=== PATIENT | female | born 1950 | race Caucasian/White ===

== ENCOUNTER 2018-11-11 07:15 | Observation (INO) | payer OTHER, BC ==
--- NOTE | 2018-10-23 11:38 | GHP ---
[f rep st] PREOP HISTORY AND PHYSICAL DATE OF ADMISSION: 11/11/2018 PROBLEM LIST: Right knee arthritis. HISTORY OF PRESENT ILLNESS: The patient is a 68-year-old woman admitted for right total knee arthrop lasty. She has had progressive pain in her right knee for the past couple of years. She has tried c ortisone shots with only brief benefit. I did her left total knee arthroplasty on 06/11/2016, and raquel chacko has had a good result. She has failed nonsurgical treatment. Her activities of daily living are v jb limited because of the pain in her right knee. She will undergo a right total knee arthroplasty. PAST MEDICAL HISTORY: She is treated for hypothyroidism, hypertension, and type 1 diabetes mellitus. She also has anxiety disorder. CURRENT MEDICATIONS: Escitalopram 20 mg per day, glipizide 10 mg per day, lisinopril 5 mg per day, l evothyroxine 50 mcg per day, omeprazole 40 mg per day, atorvastatin 10 mg per day, Actonel 35 mg per day. REVIEW OF SYSTEMS: No history of heart disease, stents, DVT, hepatitis, MRSA staph infections, sleep apnea, or bleeding problems. ALLERGIES: Drug allergies: None. Metal allergy: None. Latex allergy: She is allergic to tape. SOCIAL HISTORY: The patient is single. She does not smoke cigarettes and rarely drinks alcohol. Raquel chacko is retired. She lives with her brother. FAMILY HISTORY: Positive for arthritis diabetes, and heart disease. PHYSICAL EXAMINATION: VITAL SIGNS: Height 5 feet 2 inches. Weight 198 pounds. BMI 36.2. EYES: T he conjunctivae and sclerae are clear. Pupils are round and reactive. MOUTH: Good oral hygiene. N o loose teeth. CHEST: Clear. HEART: Regular rhythm. No murmurs. EXTREMITIES: Pertinent finding s limited to her right knee. She lacks 5 degrees of full extension and flexes to 100 degrees. She i s tender along the medial joint line. She has slight pseudolaxity of her medial collateral ligament. She lives with her brother. In addition, her cousin is going to come and stay with her for a few day s when she goes home from the hospital. IMPRESSION ON ADMISSION: 1. Right knee severe degenerative arthritis. She is prepared for right total knee arthroplasty. 2. Successful left total knee arthroplasty on 06/11/2016. 3. Treatment for type 1 diabetes. 4. Treatment for hypertension. 5. Treatment for elevated cholesterol. 6. Treatment for hypothyroidism. 7. Treatment for anxiety disorder. PLAN: She will undergo a right total knee arthroplasty. The surgery has been described to her inclu ding the risks, complications, expectations, and recovery time. I have stressed the importance of po stoperative physical therapy and advised her that a small percentage of people do not get a good resu lt with a total knee replacement. Also advised her that with bilateral procedures, there can be mild ocwf-xp-baot differences during the recovery time and even with the final result. She will go to outpatient physical therapy in [place]. Copy requested to: MD Kishan Norris, WILMAR /[id number]/MODL
--- NOTE | 2018-12-24 14:09 | GHP ---
[f rep st] PREOP HISTORY AND PHYSICAL DATE OF ADMISSION: 01/06/2019 Preoperative admission history and physical update. She will be an a.m. admission for [facility] on January 06, 2019. PROBLEM: Right knee arthritis. I dictated Марина Toscano's complete history and physical on November 11, 2018. She developed some type of upper respiratory virus and her surgery had to be canceled. She is readmitted now for surgery on 2018. There has not been any change in her history. PHYSICAL EXAMINATION: Please refer to my dictation from November 11, 2018. She has recovered from the upper respiratory viral infection. LUNGS: Clear. HEART: Regular rhythm. No murmurs. EXTREMITIES : Pertinent findings limited to her right knee. She lacks 5 degrees of full extension and flexes to 100 degrees. She is tender along the medial joint line. She has mild pseudolaxity of her medial co llateral ligament. IMPRESSION ON ADMISSION: 1. Right knee severe degenerative arthritis. She is prepared for right total knee arthroplasty. 2. Status post successful left total knee arthroplasty on 06/11/2016. 3. Treatment for type 2 diabetes. 4. Treatment for hypertension. 5. Treatment for elevated cholesterol. PLAN: She will undergo a right total knee arthroplasty. The surgery has been described to her, incl uding the risks, complications, expectations, and recovery time. I have stressed the importance of p ostoperative physical therapy. She has requested home physical therapy. I have also advised her lucien t with bilateral procedures, there can be mild ktca-kf-kwvd differences during the recovery time, and even with the final result. All her questions have been answered, and she consents to surgery. Copy requested to: Dr. Kishan Norris [place] /[id number]/MODL
[2019-01-06] MEDS ORDERED: DEXAMETHASONE 4 MG/ML VIAL IVP ONE ×2 (06:00→06:04)
[2019-01-06] MEDS ORDERED: ONDANSETRON 4 MG/2 ML VIAL IVP ONE ×2 (06:00→06:04)
[2019-01-06] MEDS ORDERED: TRANEXAMIC ACID 1,000 MG in NS 100 ML IV ONE ×2 (06:00→06:04)
[2019-01-06] MEDS ORDERED: ACETAMINOPHEN 325 MG TAB PO ONE ×2 (06:00→06:04)
[2019-01-06] MEDS ORDERED: TRANEXAMIC ACID 3,000 MG in NS (SYRINGE) 50 ML IRR ONE ×2 (06:00→06:04)
[2019-01-06] MEDS ORDERED: FAMOTIDINE 20 MG TAB PO ONE ×2 (06:00→06:04)
[2019-01-06] MEDS ORDERED: ceFAZolin 2 GM/DEXTROSE 100 ML IV ONE ×2 (06:00→06:04)
[2019-01-06] MEDS ORDERED: GABAPENTIN 300 MG CAP PO ONE ×2 (06:00→06:04)
[2019-01-06] MEDS ORDERED: POVIDONE-IODINE 20 ML in SODIUM CL IRRIG SOLUTION 500 ML IRR ONE ×2 (06:00→06:04)
[2019-01-06] MEDS ORDERED: ROPIVACAINE 0.2% 80 MG, EPINEPHrine 0.2 MG, KETOROLAC TROMETHAMINE 30 MG in SYRINGE 0 ML IU ONE ×2 (06:00→06:04)
[2019-01-06] MEDS ORDERED: LR 1,000 ML IV ONE (06:06)
[2019-01-06] MEDS ORDERED: LIDOCAINE 1% 2 ML INJ ID PRN (06:06)
[2019-01-06] MEDS ORDERED: TRANEXAMIC ACID 3,000 MG/50 ML BAG IRR ONE (06:42)
[2019-01-06] MEDS ORDERED: ceFAZolin 1 GM/5 ML SYR ONE (06:43)
--- NOTE | 2019-01-06 06:45 | PDANEPAE ---
ANE History of Present Illness OA here for R TKA ANE Past Medical History - Cardiovascular History Hx Hypertension: Yes Hx Arrhythmias: No Hx Chest Pain: No Hx Coronary Artery / Peripheral Vascular Disease: No Hx CHF / Valvular Disease: No Hx Palpitations: No Cardiovascular History Comment: lipitor for increased lipids - Pulmonary History Hx COPD: No Hx Asthma/Reactive Airway Disease: No Hx Recent Upper Respiratory Infection: No Hx Oxygen in Use at Home: No Hx Sleep Apnea: No Sleep Apnea Screening Result - Last Documented: Positive Pulmonary History Comment: denies SOB w/activity. Sinus infection - Neurologic History Hx Cerebrovascular Accident: No Hx Seizures: No Hx Dementia: No - Endocrine History Hx Diabetes: Yes Endocrine History Comment: IDDM type 2. thyroid - Renal History Hx Renal Disorders: No - Liver History Hx Hepatic Disorders: No - Neurological & Psychiatric Hx Hx Neurological and Psychiatric Disorders: Yes Neurological / Psychiatric History Comment: anxiety/depression-on Rx - Cancer History Hx Cancer: No - Congenital Disorder History Hx Congenital Disorders: No - GI History Hx Gastrointestinal Disorders: Yes Gastrointestinal History Comment: on Omeprazole. acid reflux - Other Health History Other Health History: left knee OA. sinus infection. post menapause - Chronic Pain History Chronic Pain: No (right shoulder,on right,big toe on left) - Surgical History Prior Surgeries: open glenna, scope left knee. left TKA 2017 ANE Review of Systems Review of Systems: - Exercise capacity METS (RN): 4 METS ANE Patient History - Allergies Allergies/Adverse Reactions: benzonatate [From [employer]] Allergy (Verified 01/04/19 09:57) toes swelled up - Home Medications Home medications: home medication list seen and reviewed Home Medications: Escitalopram Oxalate [Lexapro] 20 mg PO DAILY 05/06/16 [Last Taken 06/09/16] Levothyroxine [Synthroid 50 mcg (*)] 50 mcg PO DAILY06 05/06/16 [Last Taken ] Omeprazole 40 mg PO DAILY 05/06/16 [Last Taken 06/09/16] glipiZIDE [Glipizide] 10 mg PO BID 05/06/16 [Last Taken 06/09/16] Atorvastatin Calcium [Lipitor 10 mg (*)] 10 mg PO DAILY 10/20/18 [Last Taken Unknown] Cholecalciferol Vit D3 [Vitamin D3 2000 units tab (OTC)] 2,000 units PO DAILY [Last Taken Unknown] Herbals/Supplements -Info Only 1 each PO DAILY 10/20/18 [Last Taken Unknown] Insulin Glargine [Lantus] 15 unit SC HS 10/20/18 [Last Taken Unknown] Lisinopril [Zestril 5 mg (*)] 5 mg PO DAILY 10/20/18 [Last Taken Unknown] Calcium Carbonate [Oyster Shell Calcium 500 mg (*)] 500 mg PO DAILY 01/04/19 [ Last Taken Unknown] Exenatide Microspheres [Bydureon Pen] 2 mg SQ ARREDONDO 01/04/19 [Last Taken Unknown] metFORMIN SR [Glucophage XR 500 mg (*)] 1,000 mg PO BIDMEAL 01/04/19 [Last Taken 01/05/19 20:30] - NPO status NPO Status: no food or drink >8 hours - Anes Hx Anes Hx: no prior problems - Smoking Hx Smoking Status: Never smoked - Family Anes Hx Family Anes Hx: malignant hyperthermia Family Hx Anesthesia Complications: brother had Malignant Hyperthermia ANE Labs/Vital Signs - Vital Signs Vital Signs: reviewed preoperatively; see RN documention for details Height: 157.48 cm Weight: 89.811 kg ANE Physical Exam - Airway Neck exam: FROM Mallampati Score: Class 2 Mouth exam: normal dental/mouth exam - Pulmonary Pulmonary: no respiratory distress, clear to auscultation - Cardiovascular Cardiovascular: regular rate and rhythym, no murmur, rub, or gallop - ASA Status ASA Status: III ANE Anesthesia Plan Anesthesia Plan: GA with mask, spinal Regional Anesthesia: continuous NB, adductor canal FNB Total IV Anesthesia: Yes
[2019-01-06] MEDS ORDERED: MIDAZOLAM 2 MG/2 ML VIAL IVP ONE (06:46)
[2019-01-06] MEDS ORDERED: PROPOFOL/EMULSION 500 MG/50 ML BOTTLE IV ONE ×2 (06:54→08:11)
[2019-01-06 07:04] LABS: PLATELET COUNT 334 10^3/uL (150-400)
[2019-01-06] MEDS ORDERED: DEXAMETHASONE 4 MG/ML VIAL ONE (07:04)
--- NOTE | 2019-01-06 07:04 | PDHPUP ---
History & Physical Update H&P update statement: This history and physical update is based on an assessment of the patient which was completed after admission or registration (within 24 hours), but prior to the surgery/procedure. H&P update: H&P reviewed & patient examined
[2019-01-06] MEDS ORDERED: ROPIVACAINE HCL 150 MG/30 ML INJ ONE (07:37)
[2019-01-06] MEDS ORDERED: clonIDINE 1 MG/10 ML VIAL EP ONE (07:37)
[2019-01-06] MEDS ORDERED: VANCOMYCIN 1 GM VIAL ONE (07:51)
[2019-01-06] MEDS ORDERED: HYDROmorphONE/DILAUDID 1 MG/ML INJ IVP PRN (08:48)
[2019-01-06] MEDS ORDERED: HYDROCODONE/APAP 5/325 TAB PO PRN (08:48)
[2019-01-06] MEDS ORDERED: fentaNYL 100 MCG/2 ML INJ IVP PRN (08:48)
[2019-01-06] MEDS ORDERED: NALOXONE HCL 0.4 MG/ML INJ IVP PRN (08:48)
[2019-01-06] MEDS ORDERED: ACETAMINOPHEN 500 MG TAB PO PRN (08:48)
[2019-01-06] MEDS ORDERED: ONDANSETRON 4 MG/2 ML VIAL IVP PRN ×2 (08:48→09:17)
[2019-01-06] MEDS ORDERED: oxyCODONE IR 5 MG TAB PO PRN ×2 (08:48→09:17)
--- NOTE | 2019-01-06 09:08 | POSTOPPROG ---
Post Op Note Date of Operation: 01/06/19 Surgeon: Piyush Workman Door Closer: Bella Anesthesiologist: Mariah Anesthesia: IV Sedation, Spinal Post-op Diagnosis: Right knee severe degenerative arthritis. Procedure: Right total knee arthroplasty Inf/Abcess present in the surg proc area at time of surgery?: No EBL: 50-100 (Adductor canal block in PACU.)
[2019-01-06] MEDS ORDERED: diphenhydrAMINE 25 MG CAP PO PRN (09:17)
[2019-01-06] MEDS ORDERED: LACTULOSE 20 GM/30 ML UDCUP PO PRN (09:17)
[2019-01-06] MEDS ORDERED: PROMETHAZINE HCL 25 MG/ML INJ IVP PRN (09:17)
[2019-01-06] MEDS ORDERED: PROMETHAZINE HCL 25 MG SUPPR PR PRN (09:17)
[2019-01-06] MEDS ORDERED: MAGNESIUM HYDROXIDE 30 ML UDCUP PO PRN (09:17)
[2019-01-06] MEDS ORDERED: BISACODYL 10 MG SUPP PR PRN (09:17)
[2019-01-06] MEDS ORDERED: CYCLOBENZAPRINE 10 MG TAB PO PRN (09:17)
[2019-01-06] MEDS ORDERED: ONDANSETRON DISINTEGRATING 4 MG TAB PO PRN (09:17)
[2019-01-06] MEDS ORDERED: TEMAZEPAM 15 MG CAP PO PRN (09:17)
[2019-01-06] MEDS ORDERED: NS 500 ML IV PRN (09:17)
[2019-01-06] MEDS ORDERED: POLYETHYLENE GLYCOL 3350 17 GM PKT PO PRN (09:17)
[2019-01-06] MEDS ORDERED: DIPHENOXYLATE/ATROPINE LOMOTIL 1 TAB PO PRN (09:17)
[2019-01-06] MEDS ORDERED: traMADol 50 MG TAB PO PRN (09:17)
--- NOTE | 2019-01-06 09:29 | POSTANESTH ---
Post Anesthetic Evaluation Cardiovascular Status: Normal, Stable, Similar to Pre-Op Cond Respiratory Status: Normal, Stable, Similar to Pre-op Cond. Level of Consciousness/Mental Status: Can Participate in Eval, Alert and Oriented Pain Control: Adequate, Prn Tx Ordered Nausea/Vomiting Control: Adequate, Prn Tx Ordered Complications Possibly Related to Anesthesia: None Noted
[2019-01-06] MEDS ORDERED: LR 1,000 ML IV SCH (09:30)
--- NOTE | 2019-01-06 10:00 | GOP ---
[f rep st] OPERATIVE REPORT DATE OF OPERATION: 01/06/2019 SURGEON: Piyush Workman MD ELECTRICAL SIGN WIRER HELPER: 1. Jaron Cardoza, PAC. 2. Thaddeus Hathaway CFA. ANESTHESIA: A combination of Marcaine, spinal, IV sedation, and an adductor canal block. ANESTHESIOLOGIST: Juan Luis Lemus MD PREOPERATIVE DIAGNOSIS: Right knee severe degenerative arthritis with varus deformity POSTOPERATIVE DIAGNOSIS: Right knee severe degenerative arthritis with varus deformity PROCEDURE PERFORMED: January 06, 2019, right total knee arthroplasty, Lilly and Nephew Journey II, poste rior stabilized, cemented. FINDINGS: ESTIMATED BLOOD LOSS: Following deflation of the tourniquet was about 100 cc. DESCRIPTION OF PROCEDURE: The patient was given 2 g of preoperative IV Ancef within 60 minutes of maddox rgery. She also received 1000 mg of IV tranexamic acid. She was placed on the operating room table and given spinal anesthesia with Marcaine by Dr. Lemus. She was then placed supine and given IV nataliia tion. A Browne catheter was not used. She wore a RADHA stocking and SCD on the nonoperative leg. A pricilla lster was placed under her right hip to prevent excessive external rotation of her leg. Her right lo wer extremity was prepped with ChloraPrep from the upper thigh tourniquet to the tips of the toes. I t was draped free using sterile sheets, stockinette, and Ioban plastic adhesive drapes. The lower le g was wrapped with compressive Coban. Her leg was exsanguinated with elevation and a 6-inch compress maylin wrap, and the tourniquet was inflated to 300 mmHg. The World Health Organization time-out was performed to verify the correct patient identity and the c orrect surgical side and site. The Dougherty time-out was also performed. The Media Armorayo leg holding device was sterilely attached to the operating room table and used throughout the procedure to help position her knee. A straight midline incision was made centered on the patell a. Subcutaneous tissues were sharply divided, and hemostasis was obtained using electrocautery. A m edial subcutaneous flap was developed, and the capsule and synovium were opened in medial parapatella r fashion. Very extensive degenerative changes were present in all 3 compartments. She was eroded d own to subchondral bone in the medial compartment. The medial capsule and periosteum were elevated o ff the rim of the medial tibial plateau all the way around to the posteromedial corner. I did a mode rate release of her medial collateral ligament in order to balance the medial side of the knee and co rrect the varus deformity. In order to improve exposure, her patella was prepared first. The original thickness of the patella was measured. Peripheral osteophytes were removed. I cut a flat surface on the back of the patella. She was sized for a 35 mm round resurfacing component. I removed enough bone from the patella such that the remaining bone plus the thickness of the patellar component recreated the original thicknes s of the patella. The composite thickness was 21 mm. The intramedullary alignment guide system was used to set up the distal femoral cut. The distal femu r was cut in 6 degrees of valgus. Because of a 15-degree preoperative flexion contracture, I made a +2 mm cut on the distal femur. The sizing jig was used to determine proper femoral sizing. She was a true size 5 without a shift. The 5-in-1 cutting block was applied, and the anterior and posterior condylar cuts and chamfer cuts were made. The final jig was used to remove the central portion of th e distal femur to accommodate the posterior stabilized femoral component. I was careful to determine proper rotation by referencing off Whitesides line and other bony landmarks. Each cut was checked f or accuracy. The femur was sized for a size 5 posterior stabilized component. Next, the tibia was prepared. The proximal tibial cut was made using the extramedullary alignment gu rosalino system. The cut was made in a few degrees of posterior slope. I was careful to achieve proper v arus/valgus alignment and proper rotation. The posterior compartment was cleared of meniscal remnant s. Osteophytes were removed from the back of the femoral condyles. I removed a couple of loose bodi es from the posterior compartment. I checked the flexion and extension gaps, and they were equal, ba lanced, and rectangular. The tibia was sized for a size 4 component. With the trial components in p lace, I selected an 11 mm polyethylene posterior stabilized tibial insert. The knee came to full ext ension and flexed to 125 degrees. Her collateral ligaments were stable and balanced in 90 degrees of flexion and full extension. The trial patellar button was applied, and patellar tracking was checke d. Tracking was excellent without digital pressure. 40 mL of the joint anesthetic cocktail were injected into the posterior capsule, the quadriceps muscl e and tendon areas, and the subcutaneous tissues along the skin edges. The surfaces were prepared for cementing. They were carefully cleaned with the pulsating lavage irri gation and thoroughly dried. The CarboJet device was used to blow dry the cancellous surfaces. A do uble batch of high viscosity methylmethacrylate cement with 2 g of powdered vancomycin added was mixe d. While it was still in a doughy state, all [address] components were cemented in place. Excess cement was removed before it hardened. The 11 mm trial tibial insert was re-tried and was the proper thickness. The actual component was in serted and locked into place. The knee was thoroughly irrigated 1 final time with a dilute Betadine solution. The tourniquet was deflated, and the total tourniquet time was 49 minutes. 50 mL of the tranexamic a macarena solution were irrigated into the wound. The vastus medialis portion of the extensor mechanism was repaired with several interrupted figure-of -eight #2 FiberWire sutures. The capsule and synovium were closed first with multiple interrupted fi [id number]-gm-[id number] 0 PDS sutures, followed by a running #2 barbed Ethicon Stratafix PDO suture. The subcu taneous tissues were closed with a running 0 barbed Ethicon Stratafix Monoderm suture. The skin was closed with a running 3-0 barbed Ethicon Stratafix Monoderm subcuticular suture. The skin was sealed with half-inch Steri-Strips. The wound was covered with a large Mepilex waterproof dressing and a 6 -inch compressive wrap. A long-leg RADHA stocking and SCD were applied, followed by the cooling device . She wore a stocking and SCD on the opposite leg during the procedure. The sacral Mepilex dressing was applied. I used a size 5 Lilly and Nephew cemented Oxinium posterior stabilized femoral component, size 4 ceme nted tibial base plate, an 11 mm posterior stabilized tibial insert, and a 35 mm cemented round all-p olyethylene resurfacing patellar component. COUNTS: The sponge and needle counts were correct on 2 occasions. DISPOSITION: She was awakened from anesthesia, transferred to her gurney, and then taken to PACU in satisfactory condition. There were no recognized intraoperative complications. In the PACU, for add itional postoperative pain control, Dr. Lemus performed an adductor canal block with an indwelling ca theter. Darren Cardoza and Thaddeus Hathaway acted as surgical assistants. Their assistance was a medical necess ity for safe completion of the procedure. Copy requested to: Thaddeus Hathaway [facility] /[id number]/MODL
--- NOTE | 2019-01-06 10:52 | SOAPPROG ---
SOAP Progress Note Assessment/Plan: Assessment: s/p right TKA - procedure earlier today with Dr. Workman Doing well History of anxiety, depression, hypothyroidism, hypertension, diabetes, GERD Plan: Begin d/c planning - likely home tomorrow, will have support from her brother and cousin Continue VTE ppx- aspirin 325 mg QD x 21 days, RADHA hose x 1 week, SCDs in hospital Continue oral pain medication oxycodone, Tylenol, Celebrex, Tramadol Continue PT efforts WBAT, ROM as tolerated Arrange home health - she lives in [place], [place] Subjective: Patient states she is doing well, right knee pain is minimal at this time secondary to the spinal anesthesia and nerve block. Most of her pain is located in her right thigh muscles. She is planning on going home tomorrow and will have the support of her brother and cousin. She has outpatient PT scheduled on and is wanting home PT until outpatient PT begins. She denies SOB, CP, fever, chills. Objective: Vital Signs Temp Pulse Resp BP Pulse Ox 36.8 C 88 14 114/69 94 01/06/19 10:22 01/06/19 10:22 01/06/19 10:22 01/06/19 10:22 01/06/19 10:22 Laboratory Results 01/06/19 06:35 01/06/19 06:35 01/05/19 01/06/19 01/07/19 05:59 05:59 05:59 Intake Total 1120 Output Total 200 Balance 920 Patient resting comfortably in bed, no acute distress. RLE: Knee wound dressings clean, dry and intact. Lower leg compartments are soft and nontender. Negative Homans sign bilaterally. Patient can actively DF and PF her right foot and great toe against resistance. Grossly NVI distally. ICD10 Worksheet Patient Problems: Problems Problem Status Onset Osteoarthritis of right knee Acute Primary osteoarthritis of left knee Acute
[2019-01-06] MEDS: ceFAZolin 2 GM/DEXTROSE 100 ML IV SCH ×2 (14:26→22:06)
--- NOTE | 2019-01-06 15:00 | PDIAF ---
- Diagnosis Diagnosis: Right knee DJD s/p TKA Code Status: Full Code - Medication Management Discharge Medications: electronically signed and located in the Home Medication List. - Orders Services needed: Home Care, Physical Therapy, Occupational Therapy Home Care Face to Face: I certify that this patient was under my care and that I had the required [id number] encounter meeting the encounter requirements on the discharge day. My findings support the fact that the patient is homebound as defined in Home Care Face to Face Continued: CMS Chapter 7 Medicare Benefits Manual 30.1.1 , The condition of the patient is such that there exists a normal inability to leave home and consequently, leaving home would require a considerable and taxing effort. Diet Recommendation: no restrictions on diet Diet Texture: Regular Texture Diet Wound Care Instructions: Keep wound dressing clean, dry and intact Activity/Weight Bearing Restrictions: WBAT, ROM as tolerated Additional Instructions: See Dr. Workman's post-operative handout/instructions for further detail - Follow Up Care Current Providers and Referrals: JAGDEEP NETTLES MD [Other] Piyush Workman MD [Medical Doctor] -
[2019-01-06] MEDS: ACETAMINOPHEN 325 MG TAB PO SCH ×2 (15:29→22:13)
[2019-01-06] MEDS: glipiZIDE 10 MG TAB PO SCH (17:36)
[2019-01-06] MEDS: metFORMIN SR 500 MG TAB PO SCH (17:36)
[2019-01-06] MEDS ORDERED: INSULIN GLARGINE 100 UNITS/ML UNIT SC SCH (21:00)
[2019-01-06] MEDS: ASPIRIN 325 MG TAB PO SCH (22:15)
[2019-01-06] MEDS: SENNOSIDES/DOCUSATE SODIUM TAB PO SCH (22:15)
[2019-01-07] MEDS: ACETAMINOPHEN 325 MG TAB PO SCH ×2 (04:54→08:08)
[2019-01-07 05:20] LABS: CREATINE KINASE 62 IU/L (0-156)
[2019-01-07] MEDS ORDERED: LEVOTHYROXINE 50 MCG TAB PO SCH (06:00)
--- NOTE | 2019-01-07 07:21 | SOAPPROG ---
SOAP Progress Note Assessment/Plan: Assessment: Afebrile. Awake and alert. Mild pain. She has been up and walking. Postop H&H are good. Postop films look good. Plan: Physical therapy today for walking and stairs. Discharge later today. She will have home physical therapy for a couple of weeks. 01/07/19 07:20 Objective: Vital Signs Temp Pulse Resp BP Pulse Ox 36.6 C 86 18 103/57 L 98 01/07/19 04:00 01/07/19 04:00 01/07/19 04:00 01/07/19 04:00 01/07/19 04:00 Laboratory Results 01/07/19 04:32 01/07/19 04:32 01/06/19 01/07/19 01/08/19 05:59 05:59 05:59 Intake Total 2124 Output Total 2049 Balance 75 ICD10 Worksheet Patient Problems: Problems Problem Status Onset Osteoarthritis of right knee Acute Primary osteoarthritis of left knee Acute
--- NOTE | 2019-01-07 07:48 | GDS ---
[f rep st] DISCHARGE SUMMARY ADMISSION DIAGNOSIS: Right knee severe degenerative arthritis. DISCHARGE DIAGNOSIS: Right knee severe degenerative arthritis. OPERATION PERFORMED: January 06, 2019, right total knee arthroplasty. POSTOPERATIVE COMPLICATIONS: None. CONDITION ON DISCHARGE: Improved. DESCRIPTION OF HOSPITAL COURSE: The patient was admitted to the hospital on the morning of surgery. Her admission hemoglobin and hematocrit were 11.5 and 35.6. Admission BUN and creatinine were 29 an d 1.2. The same day, under a combination of Marcaine, spinal, IV sedation, and adductor canal block, she underwent a right total knee arthroplasty. Postoperatively, she was treated with multimodal DVT prophylaxis including aspirin and early mobilization. On the first postoperative day, her hemoglobi n and hematocrit were 10.5 and 31.5. Her BUN was 26. She was seen by Physical Therapy and made good progress with ambulation and stairs. By the time of discharge, she was afebrile and was independent walking with a walker. DISPOSITION: The patient is discharged to her home in [place]. She will have home physical therapy f or a couple weeks. Continue aspirin 325 mg p.o. daily for 21 days. She has prescriptions for Celebr ex, tramadol and oxycodone for pain control. Continue RADHA stockings for 1 week. I will see her zayra k in the office on January 14, 2019. If there any problems, she is to call me at the office. Copy requested to: MD Beata Norris [place] /[id number]/MODL
[2019-01-07] MEDS: SENNOSIDES/DOCUSATE SODIUM TAB PO SCH (08:00)
[2019-01-07] MEDS ORDERED: FERROUS SULFATE 325 MG TAB PO SCH (08:00)
[2019-01-07] MEDS: ASPIRIN 325 MG TAB PO SCH (08:03)
[2019-01-07] MEDS: glipiZIDE 10 MG TAB PO SCH (08:05)
[2019-01-07] MEDS: metFORMIN SR 500 MG TAB PO SCH (08:06)
[2019-01-07] MEDS ORDERED: ESCITALOPRAM OXALATE 10 MG TAB PO SCH (09:00)
[2019-01-07] MEDS ORDERED: FAMOTIDINE 20 MG TAB PO SCH (09:00)
[2019-01-07] MEDS ORDERED: ATORVASTATIN CALCIUM 10 MG TAB PO SCH (09:00)
[2019-01-07] MEDS ORDERED: LISINOPRIL 5 MG TAB PO SCH (09:00)
[2019-01-07] MEDS ORDERED: PANTOPRAZOLE SODIUM 40 MG TAB PO SCH (09:00)
[2019-01-07] MEDS ORDERED: ROPIVACAINE HCL 150 MG/30 ML INJ ONE (10:43)
[2019-01-07] MEDS ORDERED: LIPID EMULSION 20% 100 ML IV PRN (10:45)
--- NOTE | 2019-01-07 10:59 | PDPAINCON ---
Pain Management Consultation Patient referred by : Jacinta - Subjective Pain at rest (/10): 1 Pain with activity (/10): 1 Pain is: low, well controlled Activity: able to ambulate (with walker) - Objective Technique: single shot nerve block (adductor canal catheter) Catheter site: clean, dry, intact Sensory and motor exam: consistent with block Vital signs: stable Additional comments: Pt. on monitors, Ropivacaine 0.5% 20 ml injected in 5 ml aliquots, after intermittent negative aspiration. Pt. tolerated procedure well, no complaints. Catheter removed easily from L thigh. - Assessment/Plan Assessment/Plan: pain well-controlled, continue current mgmt Additional comments: Continue monitoring for 20 minutes.
--- NOTE | 2019-01-07 11:17 | ASMTLACE ---
LACE Length of stay for Answers: 2 days current admission Acuity / Level of Answers: No Care: Did the patient have an inpatient admission? Comorbidities - select Answers: Diabetes (uncontrolled or all that apply controlled) Other Notes: HTN # of Emergency department Answers: 0 visits in the last 6 months Social determinants Answers: Mental health diagnosis (anxiety, depression, pers onality disorders, etc.) Score: 7 Date Signed: 01/07/2019 11:16 AM Electronically Signed By:YEN Ramos
--- NOTE | 2019-01-07 11:19 | ASMTCMCOM ---
CM Note CM Note Notes: Pt had planned OA of knee. Pt had [facility] in 2016 and she requests their services again, they can accept. Orders sent in [email or web address]. Date Signed: 01/07/2019 11:18 AM Electronically Signed By:YEN Ramos
[2019-01-07 11:20] VITALS: BP 115/66
--- NOTE | 2019-01-07 12:39 | ASDISCHSUM ---
Discharge Information Plan Status:Home with Home Health Medically Cleared to Leave: Discharge Date:01/07/2019 11:58 AM CM D/C Disposition: ADT D/C Disposition:HHSNOTBC Projected Discharge Date:01/07/2019 11:00 AM Transportation at D/C: Discharge Delay Reason: Follow-Up Date:01/07/2019 11:00 AM Discharge Slot: Final Diagnosis: Placement Information Referral Type:*Home Health Care Services Referral ID:[id number] Provider Name:[facility] [place] Address 1:[address] [place] [address] Address 2: City:[place] Selection Factors: State:[place] Patient Contact Information Contact Name:SANYA Relationship:Cousin Address: Work Phone: City: [facility] Phone: State/Zip Code: Email: Financial Information Financial Class:Medicare Primary Plan Desc:MEDICARE OUTPATIENT Primary Plan Number:[id number] Secondary Plan Desc:[employer] [facility] Secondary Plan Number:[id number] Assessment Information LACE LACE Length of stay for Answers: 2 days current admission Acuity / Level of Answers: No Care: Did the patient have an inpatient admission? Comorbidities - select Answers: Diabetes (uncontrolled or all that apply controlled) Other Notes: HTN # of Emergency department Answers: 0 visits in the last 6 months Social determinants Answers: Mental health diagnosis (anxiety, depression, pers onality disorders, etc.) Score: 7 Date Signed: 01/07/2019 11:16 AM Electronically Signed By:YEN Ramos [facility] CM Progress Note CM Note CM Note Notes: Pt had planned OA of knee. Pt had [facility] in 2016 and she requests their services again, they can accept. Orders sent in [employer] Date Signed: 01/07/2019 11:18 AM Electronically Signed By:YEN Ramos Intervention Information
[2019-01-10] MEDS ORDERED: Exenatide Microspheres [Bydureon Pen] 2 MG SQ SCH (09:16)
== END 2019-01-07 11:58 | disposition home health service (06) ==
LOC: F3N 01-06 05:56
PROVIDERS: ADMIT Orthopaedic Surgery; ATTEND Orthopaedic Surgery
PROC: 0SRC069 Replacement of Right Knee Joint with Oxidized Zirconium on Polyethylene Synthetic Substitute, Cemented, Open Approach (ICD-10-PCS; principal; 2019-01-06 07:15)
DX: M17.11 Unilateral primary osteoarthritis, right knee (principal); Z96.652 Presence of left artificial knee joint; E11.9 Type 2 diabetes mellitus without complications; I10 Essential (primary) hypertension; E03.9 Hypothyroidism, unspecified; F41.9 Anxiety disorder, unspecified
CPT/HCPCS: 27447; 73560; 77073; 88311; 97116; 97161; 97165; C1713; C1776; J0171; J0690; J0735; J1100; J1815; J1885; J2250; J2405; J2704; J2795; J3370